=== PATIENT | male | born 1970 ===

== ENCOUNTER → 2018-07-30 21:17 | Outpatient (REF) | payer SELFPAY ==
[2018-07-30 21:45] LABS: Add Manual Diff / Slide Review NO; Basophils Absolute Auto 0 /uL (0-100); Basophils Percent Auto 0.5 % (0-2); Eosinophils Absolute Auto 200 /uL (0-450); Eosinophils Percent Auto 4.1 % (2-4); Hematocrit 47.4 % (41-53); Hemoglobin 15.8 g/dL (13.5-17.5); Lymphocytes Absolute Auto 2500 /uL (1100-4500); Lymphocytes Percent Auto 42.6 % (25-40); Mean Corpuscular HGB Conc 33.4 % (30-36); Mean Corpuscular Hemoglobin 32.3 PG (26-34); Mean Corpuscular Volume 96.7 fL (80-100); Monocytes Absolute Auto 600 /uL (0-900); Monocytes Percent Auto 11.1 % (3-14); Neutrophils Absolute Auto 2400 /uL (1500-7000); Neutrophils Percent Auto 41.7 % (50-75); Platelet Count 263 X10^3/uL (150-400); Red Cell Distribution Width 13.7 % (11.6-14.8); White Blood Cell Count 5.7 X10^3/uL (4.5-11.0)
[2018-08-02 14:54] LABS: Estradiol 39 pg/mL (< 40)
[2018-08-02 18:59] LABS: PSA Total 0.87 ng/mL (< 4.01)
== END ==
LOC: LAB 21:17
PROVIDERS: Visit Provider Naturopath
DX: E29.1 Testicular hypofunction (principal); Z13.89 Encounter for screening for other disorder
CPT/HCPCS: 36415; 82670; 84153; 84154; 84270; 84402; 84403; 85025